=== PATIENT | female | born 1960 | race African-American/Black ===

== ENCOUNTER 2017-08-05 10:00 | Emergency (ER) | payer MEDICARE, OTHER ==
[~2017-08-05] VITALS: Ht 162.6 cm; Wt 74.8 kg
[~2017-08-05 10:00] MED LIST: AMLO10TA4 PO; GLIPIZIDE; LOSA100T3 PO; NEURONTIN; TRAZADONE
[2017-08-05] MEDS ORDERED: LORA-258 PO (10:13)
[2017-08-05] MEDS ORDERED: GLYB2.5T4 PO (10:13)
[2017-08-05] MEDS ORDERED: SITA1TAB2 PO (10:13)
[2017-08-05] MEDS ORDERED: AMIT150T PO (10:13)
--- NOTE | 2017-08-05 10:30 | NUR ---
Pt c/o sore throat, cough and larygitis for 5 days and some SOB. Pt denies CP, dizziness, n/v, no other complaints, no distress noted.
--- NOTE | 2017-08-05 10:38 | NUR ---
Patient discharged to home in stable conditon. Written and verbal after care instructions given. Patient verbalizes understanding of instructions. Stressed follow up with pmd or return to ER for worsening s/s.
== END 2017-08-05 10:39 | disposition home or self-care (01) ==
LOC: ER 10:14
DX: J02.9 Acute pharyngitis, unspecified (principal); I10 Essential (primary) hypertension; K21.9 Gastro-esophageal reflux disease without esophagitis; E11.9 Type 2 diabetes mellitus without complications; G89.29 Other chronic pain; M54.5 Low back pain; Z88.2 Allergy status to sulfonamides
CPT/HCPCS: 99283; A4663

== ENCOUNTER 2019-12-10 00:08 | Emergency (ER) | payer MEDICARE, OTHER ==
[~2019-12-10] VITALS: Ht 162.6 cm; Wt 81.6 kg
--- NOTE | 2019-12-10 00:25 | NUR ---
Patient presents to ER with c/o of Lt hip x 2 days. Patient states she hit a wall on her rt side and her Lt side began to hurt, pt also complains on numbness to Lt knee. No swelling noted to Lt know. Patient noted to be moaning in pain. Awaiting MD sheriff.
--- NOTE | 2019-12-10 00:31 | NUR ---
Dr. Alexander at bedside.
[2019-12-10] MEDS ORDERED: LORAZEPAM 1 MG TABLET ONE (00:40)
[2019-12-10] MEDS ORDERED: ONDANSETRON ODT 4 MG TAB.RAPDIS ONE (00:40)
[2019-12-10] MEDS ORDERED: OXYCODONE/APAP 5-325 MG TABLET ONE ×2 (00:41→01:31)
[2019-12-10] MEDS ORDERED: CARISOPRODOL 350 MG TABLET ONE (00:42)
[2019-12-10] MEDS ORDERED: ONDANSETRON ODT 4 MG TAB.RAPDIS SL ONE (00:45)
[2019-12-10] MEDS ORDERED: LORAZEPAM 0.5 MG TABLET PO ONE (00:45)
[2019-12-10] MEDS ORDERED: OXYCODONE/APAP 5-325 MG TABLET PO ONE ×2 (00:45→01:30)
[2019-12-10] MEDS ORDERED: CARISOPRODOL 350 MG TABLET PO ONE (00:45)
--- NOTE | 2019-12-10 00:48 | NUR ---
xray at bedside.
[2019-12-10] MEDS ORDERED: IV NORMAL SALINE 1000 ML BAG IV ONE (01:45)
--- NOTE | 2019-12-10 02:03 | NUR ---
Patient in [facility] with her limbs sprawled throught the bed. Unable to maintain in a comfortable position.
--- NOTE | 2019-12-10 03:00 | NUR ---
Patient discharged to home in care of patient's son. DC instructions and prescriptions given and reviewed with patient. Verbalized understanding. IV dc'd noted with tip intact. Left ER in stable condition.
== END 2019-12-10 02:59 | disposition home or self-care (01) ==
LOC: ER 00:14
DX: G89.29 Other chronic pain (principal); M25.552 Pain in left hip; M54.9 Dorsalgia, unspecified; I10 Essential (primary) hypertension; E11.9 Type 2 diabetes mellitus without complications; K21.9 Gastro-esophageal reflux disease without esophagitis; F32.9 Major depressive disorder, single episode, unspecified; E86.0 Dehydration; Z88.5 Allergy status to narcotic agent; Z79.899 Other long term (current) drug therapy; Z79.4 Long term (current) use of insulin; Z88.2 Allergy status to sulfonamides
CPT/HCPCS: 72170; 73502; A4663; J7030; Q0162